=== PATIENT | female | born 1980 | race Caucasian/White ===

== ENCOUNTER 2022-09-30 08:17 | Emergency (ER) | payer SELFPAY ==
[~2022-09-30] VITALS: Ht 149.9 cm; Wt 38.1 kg
[2022-09-30] MEDS ORDERED: Bactrim Ds Tab1 EACH PO (09:19)
[2022-09-30] MEDS ORDERED: CEPH500 PO (09:19)
== END 2022-09-30 09:32 | disposition home or self-care (01) ==
LOC: ER 08:17
DX: L03.115 Cellulitis of right lower limb (principal); F17.200 Nicotine dependence, unspecified, uncomplicated
CPT/HCPCS: 99282

== ENCOUNTER 2024-02-23 21:16 | Inpatient (IN) | payer OTHER ==
[~2024-02-23] VITALS: Ht 149.9 cm; Wt 40.4 kg
[~2024-02-23 21:16] MED LIST: Bactrim Ds Tab1 EACH PO; CEPH500 PO
[2024-02-23 21:30] LABS: BASOPHILS ABSOLUTE AUTO 0.03 K/mm3 (0.00-0.23); BASOPHILS PERCENT AUTO 0 % (0-2); EOSINOPHILS ABSOLUTE AUTO 0.06 K/mm3 (0.00-0.68); EOSINOPHILS PERCENT AUTO 1 % (0-6); Hematocrit 25.7 % (33.0-51.0); Hemoglobin 8.2 g/dL (11.5-16.0); IMMATURE GRAN ABSOLUTE AUTO 0.03 K/mm3 (0.00-0.10); IMMATURE GRAN PERCENT AUTO 0 % (0-1); LYMPHOCYTES ABSOLUTE AUTO 3.97 K/mm3 (0.84-5.20); LYMPHOCYTES PERCENT AUTO 37 % (21-46); MONOCYTES ABSOLUTE AUTO 1.04 K/mm3 (0.16-1.47); MONOCYTES PERCENT AUTO 10 % (4-13); Mean Corpuscular HGB 33.2 pg (26.0-34.0); Mean Corpuscular HGB Conc 31.9 g/dL (31.5-36.5); Mean Corpuscular Volume 104 fL (80-100); Mean Platelet Volume 10.1 fL (9.1-12.4); NEUTROPHILS ABSOLUTE AUTO 5.67 K/mm3 (1.96-9.15); NEUTROPHILS PERCENT AUTO 52 % (41-73); Platelet Count 210 K/mm3 (150-400); RDW Coefficient Variation 15.8 % (11.7-14.2); RDW Standard Deviation 59.8 fL (35.1-46.3); Red Blood Cell Count 2.47 M/mm3 (3.80-5.20)
[2024-02-23 21:55] LABS: RETICULOCYTE ABSOLUTE 0.0432 M/mm3 (0.0200-0.1100); RETICULOCYTE COUNT PERCENT 1.77 % (0.50-2.50)
[2024-02-23 22:10] LABS: International Normalized Ratio 1.02; Prothrombin Time Results 10.9 Sec (9.7-11.5)
[2024-02-23 22:23] LABS: Albumin, Blood 2.7 g/dL (3.4-5.0); Albumin/Globulin Ratio 0.8 (0.8-1.8); Bilirubin, Total 0.3 mg/dL (0.1-1.0); Bun/Creatinine Ratio 15.1 (12.0-20.0); Calcium, Blood 7.9 mg/dL (8.5-10.1); Creatinine, Blood 0.53 mg/dL (0.40-1.00); Globulin, Blood 3.3 g/dL (2.2-4.0); Thyroid Stimulating Hormone 20.9 uIU/mL (0.360-4.800)
[2024-02-23] MEDS ORDERED: Potassium Chloride 40 MEQ in NS 250 ML IV ONE (22:55)
[2024-02-23] MEDS ORDERED: Cyanocobalamin 1000 MCG/ML 1ML Vial IM SCH (23:00)
[2024-02-23 23:16] LABS: Free Thyroxine 0.72 ng/dL (0.70-1.60); Magnesium, Blood 1.6 mg/dL (1.6-2.4); Triiodothyronine, Free 1.5 pg/mL (2.18-3.98)
[2024-02-23] MEDS ORDERED: NS 1,000 ML IV SCH (23:20)
[2024-02-23] MEDS ORDERED: NS 1,000 ML IV ONE (23:25)
[2024-02-23] MEDS ORDERED: ESTROGENS CONJUGATED IV ONE (23:45)
[2024-02-24] VITALS (23 sets, daily range): BP systolic 114–142; BP diastolic 69–85
[2024-02-24] MEDS ORDERED: propofoL 20 ML IV ONE (00:17)
[2024-02-24] MEDS ORDERED: Lidocaine HCl 2% 20 ML MDV ONE (00:17)
[2024-02-24] MEDS ORDERED: Rocuronium Bromide 10 MG/ML 5ML Injection IV ONE ×2 (00:17→01:54)
[2024-02-24] MEDS ORDERED: FentaNYL Citrate 50 MCG/ML 2 ML Injection ONE (00:18)
[2024-02-24] MEDS ORDERED: Lidocaine HCl 2% Jelly 120MG/6ML SYR (20MG PER ML) ONE (00:19)
[2024-02-24] MEDS ORDERED: CeFAZolin Sodium 2,000 MG in NS 100 ML IV SCH (01:05)
[2024-02-24] MEDS ORDERED: CeFAZolin Sodium 1000 mg Vial ONE (01:16)
[2024-02-24] MEDS ORDERED: Phenylephrine HCl 100 MCG/ML-NS 10MLSYR (1MG/10ML) ONE (01:17)
[2024-02-24] MEDS ORDERED: Ondansetron HCl 2 MG / ML 2ML Vial ONE (01:36)
[2024-02-24] MEDS ORDERED: Dexamethasone Sod Phos 10 MG/ML 1ML VIAL ONE (01:36)
[2024-02-24] MEDS ORDERED: FentaNYL Citrate 50 MCG/ML 2 ML Injection IV PRN ×2 (01:50)
[2024-02-24] MEDS ORDERED: Ondansetron HCl 2 MG / ML 2ML Vial IV PRN ×2 (01:50→03:20)
[2024-02-24] MEDS ORDERED: HYDROmorphone HCl/Pf 1MG SYR IV PRN ×2 (01:50→03:15)
[2024-02-24] MEDS ORDERED: Bupivacaine 0.5% HCl 5 MG/ML 30MLVIAL ONE (02:12)
[2024-02-24] MEDS ORDERED: Sugammadex Sodium 200 MG/2ML SDV (100 MG/ML) ONE (02:18)
[2024-02-24] MEDS ORDERED: Silver Nitr/Potassium Nitrate 1 EA APPL TOP ONE (02:40)
[2024-02-24] MEDS ORDERED: DiphenhydrAMINE HCL 25 MG Cap PO PRN (03:15)
[2024-02-24] MEDS ORDERED: Simethicone 80 MG Chew PO PRN (03:15)
[2024-02-24] MEDS ORDERED: Naloxone HCl 0.4MG / ML 1ML Vial IV PRN (03:20)
[2024-02-24] MEDS ORDERED: OxyCODONE HCL 5 MG TAB PO PRN ×2 (03:20)
[2024-02-24] MEDS ORDERED: Lactated Ringer's 1,000 ML IV SCH (03:20)
[2024-02-24] MEDS ORDERED: Metoclopramide HCl 5MG / ML 2ML Vial IV PRN (03:20)
[2024-02-24 03:46] LABS: BASOPHILS ABSOLUTE AUTO 0.02 K/mm3 (0.00-0.23); BASOPHILS PERCENT AUTO 0 % (0-2); EOSINOPHILS PERCENT AUTO 0 % (0-6); Hematocrit 29.8 % (33.0-51.0); Hemoglobin 9.9 g/dL (11.5-16.0); IMMATURE GRAN ABSOLUTE AUTO 0.03 K/mm3 (0.00-0.10); IMMATURE GRAN PERCENT AUTO 0 % (0-1); LYMPHOCYTES ABSOLUTE AUTO 0.76 K/mm3 (0.84-5.20); LYMPHOCYTES PERCENT AUTO 8 % (21-46); MONOCYTES ABSOLUTE AUTO 0.23 K/mm3 (0.16-1.47); MONOCYTES PERCENT AUTO 3 % (4-13); Mean Corpuscular HGB 31.7 pg (26.0-34.0); Mean Corpuscular HGB Conc 33.2 g/dL (31.5-36.5); Mean Platelet Volume 10.1 fL (9.1-12.4); NEUTROPHILS PERCENT AUTO 89 % (41-73); Platelet Count 137 K/mm3 (150-400); RDW Coefficient Variation 15.9 % (11.7-14.2); RDW Standard Deviation 54.1 fL (35.1-46.3); Red Blood Cell Count 3.12 M/mm3 (3.80-5.20); White Blood Cell Count 9.34 K/mm3 (4.00-11.30)
[2024-02-24 03:47] LABS: Mean Corpuscular Volume 96 fL (80-100)
[2024-02-24] MEDS ORDERED: Ketorolac Tromethamine 30mg Vial IV SCH (04:00)
[2024-02-24 04:28] LABS: Bun/Creatinine Ratio 10.4 (12.0-20.0); Calcium, Blood 6.9 mg/dL (8.5-10.1); Creatinine, Blood 0.39 mg/dL (0.40-1.00)
[2024-02-24] MEDS ORDERED: CALCIUM GLUC IN NACL, ISO-OSM 50 ML IV ONE (05:40)
[2024-02-24] MEDS ORDERED: Acetaminophen 500 MG Tab PO SCH (06:00)
--- NOTE | 2024-02-24 06:27 | NUR ---
ARRIVAL TO ICU/END OF SHIFT SUMMARY PT ARRIVED TO ICU 3 AT 0250 FROM THE OR; HAD SURGERY FOR A TOTAL HYSTERECTOMY. SHE WAS ON A NRB AT 8L AND WAS ABLE TO TITRATE DOWN TO RA WITH SPO2 >97%. PAIN MANAGABLE WITH PRN FENTANYL AT THE BEGINNING AND NOW PRN OXYCODONE AND TYLENOL. SHE IS A/O X4 AND ABLE TO MAKE HER NEEDS KNOWN. HR 60'S. BP STABLE WITH SBP 120'S. TOLERATING PO WATER WELL WITH PO MEDS. LOPEZ IN PLACE AND DRAINING TO GRAVITY. ABD INCISION DRESSING HAS SMALL AMOUNT OF DRAINAGE BUT CONT TO BE INTACT; NO VAGINAL DISCHARGE AT THIS TIME. LR INFUSING AT 125ML/HR. POTASSIUM AND CALCIUM REPLACED. DR KABA ROUNDED AND PLANS ON BEING BACK LATER THIS AFTERNOON. PT CAME TO BEDSIDE SHORTLY AFTER ARRIVAL FOLLOWED BY HEADING HOME; HE WAS APPROPRIATE. WILL REPORT TO AM RN WHEN AVAILABLE.
[2024-02-24] MEDS ORDERED: Ibuprofen 400 MG Tab PO SCH (08:00)
--- NOTE | 2024-02-24 08:00 | NUR ---
INITIAL ASSESSMENT PATIENT ALERT AND ORIENTED X 4, AFEBRILE. PATIENT REPORTS 6/10 PAIN TO ABD BUT STATES 7/10 PAIN IS MANAGEABLE FOR HER. PATIENT RECEIVING SCHEDULED PAIN MEDICATIONS AND HAS PRNS AVAILABLE. PATIENT MOVES ARMS AND LEGS WELL. LIMITED MOVEMENT TO ABD/ CORE POST SURGERY. PATIENT SATTING 90% AND GREATER ON RA. LUNGS CLEAR THROUGHOUT. PATIENT IN SR, HR 60S TO 70S. SBP 1-TEENS TO 120S. ISLAND DRESSING TO LOWER ABD. SMALL AMOUNT OF DRAINAGE NOTED; NIGHT RN REPORTS NO FURTHER DRAINAGE ON HER SHIFT. LOPEZ IN PLACE DRAINING YELLOW COLORED URINE. LR INFUSING AT 125 MLS/ HOUR. BED LOW, CALL LIGHT IN REACH. CARE CONTINUES.
--- NOTE | 2024-02-24 08:10 | NUR ---
ER SENT BLOOD REQUEST TO LAB. LAB SENT BLOOD TO ICU. LAB CALLED ICU NURSE DID NOT INITIATE THIS OR SEND FOR SLIP. LAB STATED OK TO SEND BLOOD BACK IN TUBE SYSTEM.
[2024-02-24 09:34] LABS: Hematocrit 29.2 % (33.0-51.0); Hemoglobin 10.3 g/dL (11.5-16.0)
--- NOTE | 2024-02-24 12:00 | NUR ---
PATIENT AFEBRILE. NO NEURO CHANGES NOTED. HR 60S TO 70S. SBP 130S TO 140S. NO INCREASED DRAINAGE TO ABD DRESSING AND NO DRAINAGE/ BLEEDING NOTED FROM VAGINAL OPENING. NO COMPLAINTS OF PAIN. BED LOW, CALL LIGHT IN REACH. CARE CONTINUES.
[2024-02-24] MEDS ORDERED: Nicotine 14 MG PATCH TOP SCH (12:05)
[2024-02-24 12:23] LABS: Albumin, Blood 2.4 g/dL (3.4-5.0); Albumin/Globulin Ratio 0.9 (0.8-1.8); Bilirubin, Total 0.6 mg/dL (0.1-1.0); Calcium, Blood 7.7 mg/dL (8.5-10.1); Creatinine, Blood 0.36 mg/dL (0.40-1.00); Globulin, Blood 2.7 g/dL (2.2-4.0); Potassium, Blood 3.5 mmol/L (3.5-5.5); Total Protein, Blood 5.1 g/dL (6.4-8.2)
[2024-02-24 15:42] LABS: Hematocrit 27.2 % (33.0-51.0); Hemoglobin 9.3 g/dL (11.5-16.0)
--- NOTE | 2024-02-24 16:00 | NUR ---
PATIENT HAS TEMP OF 99.5 DEGREES FAHRENHEIT. HR IN THE 60S. SBP IN THE 1-TEENS. NO CHANGES TO ABD DRESSING/ DRAINAGE. NO OTHER ACUTE CHANGES TO NOTE ON AT THIS TIME. BED LOW, CALL LIGHT IN REACH. CARE CONTINUES.
--- NOTE | 2024-02-24 16:36 | NUR ---
DR. KABA CALLED AND UPDATED THAT HEMOGLOBIN HAS DROPPED. INFORMED THAT NO FURTHER LABS ORDERED. DR. KABA ORDERED FOR CBC AND BNP FOR AM.
--- NOTE | 2024-02-24 18:18 | NUR ---
SHIFT SUMMARY PATIENT REMAINED ALERT AND ORIENTED X 4. PATIENT HAD TMAX OF 99.5 DEGREES FAHRENHEIT. PATIENT STATED THAT PAIN CONTROLLED ADEQUATELY WITH SCHEDULED PAIN MEDICATIONS. PATIENT DID NOT FEEL LIKE GETTING OUT OF BED TODAY. DR. KABA STATED PATIENT OKAY TO PERFORM ACTIVITIES AD THONY WITH NO HEAVY LIFTING AND NO SHOWER TODAY. PATIENT REMAINED SATTING 90% AND GREATER ON RA. PATIENT REMAINED IN SR, HR 60S TO 80S. SBP 1-TEENS TO 140S. SCDS REMAINED IN PLACE. PATIENT HAD OKAY APPETITE. FRIEND BROUGHT IN SOME FOOD THAT PATIENT LIKED BETTER THAN HOSPITAL FOOD. NO BM THIS SHIFT. NO COMPLAINTS OF NAUSEA THIS SHIFT. LOPEZ DRAINED 1850 MLS OF YELLOW COLORED URINE. NO CHANGES TO ABD DRESSING/ DRAINAGE. NO BLEEDING OR DRAINAGE NOTED FROM VAGINA THIS SHIFT. ADMIT HX COMPLETED THIS SHIFT. PATIENT HAD FRIEND COME VISIT THIS SHIFT. BED LOW, CALL LIGHT IN REACH. NO COMPLAINTS AT THIS TIME. REPORT WILL BE GIVEN TO ASSUMING CONTROL INTEGRATION ENGINEER NURSE SHORTLY.
--- NOTE | 2024-02-24 20:24 | NUR ---
[facility] AT 1900. A&O X4. PATIENT ON RA. PAIN MANAGED WITH SCHUDEULED MEDS. JOHN REMOVED AT 1999.
[2024-02-25 04:37] VITALS: BP 128/76
--- NOTE | 2024-02-25 04:55 | NUR ---
NICKER AND BREAKER PATIENT IS A&OX4, VITALS ARE STABLE AND IS ON ROOM AIR. PATIENT DENIED ANY PAIN BUTaccepted TO TAKE HER SCHEDULE PAIN MEDS. PATIENT GOT TRANSFERRED FROM ICU LAST NIGHT TO [facility] [place]. SHE HAD A LOPEZ CATHETER IN THE ICU THAT WAS REMOVED AT 1999 BEFORE TRANSFERRING. THROUGHOUT THE NIGHT SHE HAD NOTHING TO DRINK EXCEPT FOR A SIP OF WATER WITH PILLS. SHE VOIDED A TOTAL OF 250ML DURING NICKER AND BREAKER. PATIENT HAD A HYSTERECTOMY YESTERDAY AND IS BEING MONITOR FOR ANY VAGINAL BLEEDING. PATIENT HAD A SMALL AMOUNT OF VAGINAL BLEED ON THE BED DURING TRANSFERRING. PATIENT ACTIVITY IS UP AT LID. SHE IS VERY WEAK SO WE SHE WAS EDUCATED TO CALL BEFORE GETTING OUT OF BED TO PREVENT FALLS.
[2024-02-25 05:08] LABS: BASOPHILS ABSOLUTE AUTO 0.03 K/mm3 (0.00-0.23); BASOPHILS PERCENT AUTO 0 % (0-2); EOSINOPHILS ABSOLUTE AUTO 0.04 K/mm3 (0.00-0.68); EOSINOPHILS PERCENT AUTO 0 % (0-6); Hematocrit 27.8 % (33.0-51.0); Hemoglobin 9.6 g/dL (11.5-16.0); IMMATURE GRAN ABSOLUTE AUTO 0.07 K/mm3 (0.00-0.10); IMMATURE GRAN PERCENT AUTO 1 % (0-1); LYMPHOCYTES ABSOLUTE AUTO 2.44 K/mm3 (0.84-5.20); LYMPHOCYTES PERCENT AUTO 20 % (21-46); MONOCYTES ABSOLUTE AUTO 0.56 K/mm3 (0.16-1.47); MONOCYTES PERCENT AUTO 5 % (4-13); Mean Corpuscular HGB 32.1 pg (26.0-34.0); Mean Corpuscular HGB Conc 34.5 g/dL (31.5-36.5); Mean Corpuscular Volume 93 fL (80-100); Mean Platelet Volume 10.7 fL (9.1-12.4); NEUTROPHILS ABSOLUTE AUTO 9.36 K/mm3 (1.96-9.15); NEUTROPHILS PERCENT AUTO 75 % (41-73); Platelet Count 160 K/mm3 (150-400); RDW Coefficient Variation 17.4 % (11.7-14.2); RDW Standard Deviation 58.3 fL (35.1-46.3); Red Blood Cell Count 2.99 M/mm3 (3.80-5.20)
[2024-02-25 05:40] LABS: Bun/Creatinine Ratio 10.7 (12.0-20.0); Calcium, Blood 7.9 mg/dL (8.5-10.1); Creatinine, Blood 0.47 mg/dL (0.40-1.00); Percent Saturation 24.9 % (15.0-50.0); Potassium, Blood 3.5 mmol/L (3.5-5.5)
[2024-02-25] MEDS ORDERED: Polyethylene Glycol 3350 17 gm PO SCH (06:00)
[2024-02-25 07:41] VITALS: BP 123/74
[2024-02-25] MEDS ORDERED: Ibuprofen 400 MG Tab PO SCH (08:00)
[2024-02-25] MEDS ORDERED: Folic Acid 1 MG TAB PO SCH (09:00)
[2024-02-25] MEDS ORDERED: Thiamine HCl 100 MG Tab PO SCH (09:00)
[2024-02-25] MEDS ORDERED: Famotidine 20 MG Tab PO SCH (09:00)
[2024-02-25 19:32] VITALS: BP 150/77
--- NOTE | 2024-02-25 20:34 | NUR ---
SUMMARY- PT A/O X4. TOLERATING FOOD AND FLUID. PT'S DRESSING REMOVED, MIN OLD BLOOD, LOW ABD INCISION APPROX 9CM LENGTH, APPEARS SURGICAL GLUE AND INTERNAL SUTURES, BRUISING PRESENT HOLLEY INCISION. PT CONT TO COMPLAIN OF ABD BLOATED GASSY FEELING, STATES SHE IS PASSING GAS. ABD MILDLY DIDTENDED, NORMOACTIVE BOWEL TONES. HEAT PAD IN USE ASSISTS IN DISCOMFORT. PT ENC ACTIVITY, AMBULATED IN [place] THIS AFTERNOON. PAIN CONTROLLED WITH ROUTINE SCHEDULED TYLENOL AND IBUPROFEN AND HAD OXYCODONE 5MG X2 TODAY. PT TOLERATING FOOD AND FLUID. 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 PLAN FOR PT TO BE NPO AFTER MN. DR REYES CAME BY BUT PT WAS IN SHOWER. PLAN FOR HIM TO EVAL PT IN AM WITH LIKELY PORT PLACEMENT IN PM. REPORTED TO SHANNA STATON
[2024-02-26] VITALS (12 sets, daily range): BP systolic 86–157; BP diastolic 55–91
--- NOTE | 2024-02-26 05:38 | NUR ---
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 NO VAGINAL BLEEDING OBSERVED, ABD INCISION INTACTED AND OPEN TO AIR. PATIENT HAD BEEN NPO SINCE MIDNIGHT FOR A POSSIBLE CHEMO PORT INSERTON. PATIENT NOTIFIED STAFF LASTNIGHT THAT SHE DOESN'T WANT A PORT PUT IN YET UNTIL SHE GOES HOME AND DISCUSS WITH HER FAMILY. SHE SAID SHE DOESN'T WANT TO START CHEMO YET UNTI SHE HAS TALKED TO HER FAMILY ABOUT IT AND THAT SHE WOULD LIKE TO BE D/C HOME TODAY.
[2024-02-26] MEDS ORDERED: CeFAZolin Sodium 2,000 MG in NS 100 ML IV SCH (11:45)
[2024-02-26] MEDS ORDERED: Lactated Ringer's 1,000 ML IV SCH (11:45)
--- NOTE | 2024-02-26 12:06 | NUR ---
PT BROUGHT FROM FLOOR TO DAY SURGERY FOR PROCEDURE. History, Chart, Medications and Allergies reviewed before start of procedure. Lungs clear T/O to Auscultation. Patient confirms NPO status and agrees with scheduled surgery. Pre-Op teaching done. Pt verbalizes understanding. PT BELONGINGS LEFT IN HER PERSONAL ROOM 306 ON MEDICAL FLOOR.
--- NOTE | 2024-02-26 12:06 | NUR ---
PT HAS 20G IV TO RIGHT FOREARM THAT FLUSHES WELL AND FLOWS TO GRAVITY.
--- NOTE | 2024-02-26 12:09 | NUR ---
PT HAS RINGS ON LEFT RING FINGER THAT CANNOT BE REMOVED. JEWELRY TAPED AND JEWELRY CONSENT SIGNED. OR NOTIFIED.
[2024-02-26] MEDS ORDERED: Midazolam HCl 1MG / ML 2ML Vial ONE (12:34)
[2024-02-26] MEDS ORDERED: propofoL 60 ML IV ONE (12:34)
[2024-02-26] MEDS ORDERED: Bupivacaine 0.5% HCl 5 MG/ML 30MLVIAL ONE (12:54)
--- NOTE | 2024-02-26 14:12 | NUR ---
PT RESTING QUIETLY,VSS, SITE CLEAR. XRAY DONE AWAITING REPORT. REPORT TO BEE STATON.
[2024-02-26] MEDS ORDERED: FOLI1 PO (14:28)
[2024-02-26] MEDS ORDERED: ACET500 PO (14:28)
[2024-02-26] MEDS ORDERED: OXAYDO5 M1 PO (14:29)
[2024-02-26] MEDS ORDERED: IBUP400 PO (14:29)
[2024-02-26] MEDS ORDERED: MIRALAX17 GM PO (14:30)
[2024-02-26] MEDS ORDERED: SIME80CH PO (14:30)
--- NOTE | 2024-02-26 16:00 | NUR ---
DISCHARGE INSTRUCTIONS COMPLETED AND DISCUSSED WITH PT EXPRESSING UNDERSTANDING. SCRIPTS FAXED TO [facility] ON [facility]. TO [facility] VIA W/C AFTER MEDIPORT PLACED. VSS. AWAKE AND ALERT. ATE A SANDWICH AND WALKED TO THE BATHROOM INDEPENDENTLY TWICE.
== END 2024-02-26 16:00 | disposition home or self-care (01) | DRG 740 ==
LOC: ER 21:16 → ICUE 21:17 → ER 02-24 00:57 → ICUE 02-24 02:05 → MEDS 02-24 03:13 → ICUE 02-24 03:14 → MEDS 02-24 21:02 → ENPENDDIS 02-26 10:16 → MEDS 02-26 16:00
PROVIDERS: Emergency Medicine; Family Medicine; Internal Medicine; ADMIT Obstetrics & Gynecology
PROC: 0UT90ZL Resection of Uterus, Supracervical, Open Approach (ICD-10-PCS; 2024-02-24)
PROC: 0TJB8ZZ Inspection of Bladder, Via Natural or Artificial Opening Endoscopic (ICD-10-PCS; 2024-02-24)
PROC: 30233N1 Transfusion of Nonautologous Red Blood Cells into Peripheral Vein, Percutaneous Approach (ICD-10-PCS; 2024-02-24)
PROC: 0UT70ZZ Resection of Bilateral Fallopian Tubes, Open Approach (ICD-10-PCS; principal; 2024-02-24 09:45)
PROC: 0JH60WZ Insertion of Totally Implantable Vascular Access Device into Chest Subcutaneous Tissue and Fascia, Open Approach (ICD-10-PCS; 2024-02-26)
PROC: 02HV33Z Insertion of Infusion Device into Superior Vena Cava, Percutaneous Approach (ICD-10-PCS; 2024-02-26)
PROC: B548ZZA Ultrasonography of Superior Vena Cava, Guidance (ICD-10-PCS; 2024-02-26)
DX: C53.9 Malignant neoplasm of cervix uteri, unspecified (principal); D62 Acute posthemorrhagic anemia; F10.90 Alcohol use, unspecified, uncomplicated; D25.9 Leiomyoma of uterus, unspecified; E87.6 Hypokalemia; I95.9 Hypotension, unspecified; E03.8 Other specified hypothyroidism; R91.1 Solitary pulmonary nodule; F17.210 Nicotine dependence, cigarettes, uncomplicated; F12.90 Cannabis use, unspecified, uncomplicated
CPT/HCPCS: 36415; 36430; 71260; 74177; 77001; 80048; 80053; 82330; 82607; 82728; 82746; 83540; 83550; 83735; 84439; 84443; 84481; 84703; 85014; 85018; 85025; 85045; 85610; 85730; 86850; 86900; 86901; 86920; 86923; 88309; 93005; 93010; 96365-59; 96366; 96372-59; 96375; 99285-25; A9270; C1788; J0612; J0690; J1100; J1410; J1642; J1885; J2250; J2371; J2405; J2704; J3010; J3420; J3480; J7030; J7050; J7120; P9016; Q9967

== ENCOUNTER → 2024-04-27 | Outpatient (CLI) | payer OTHER ==
[~2024-04-27] MED LIST changes: +ACET500 PO; +FOLI1 PO; +IBUP400 PO; +MIRALAX17 GM PO; +OXAYDO5 M1 PO; +SIME80CH PO
[2024-04-27 11:08] LABS: BASOPHILS ABSOLUTE AUTO 0.02 K/mm3 (0.00-0.23); BASOPHILS PERCENT AUTO 0 % (0-2); EOSINOPHILS ABSOLUTE AUTO 0.13 K/mm3 (0.00-0.68); EOSINOPHILS PERCENT AUTO 2 % (0-6); Hematocrit 31.6 % (33.0-51.0); Hemoglobin 10.5 g/dL (11.5-16.0); IMMATURE GRAN ABSOLUTE AUTO 0.03 K/mm3 (0.00-0.10); IMMATURE GRAN PERCENT AUTO 1 % (0-1); LYMPHOCYTES ABSOLUTE AUTO 0.85 K/mm3 (0.84-5.20); LYMPHOCYTES PERCENT AUTO 13 % (21-46); MONOCYTES ABSOLUTE AUTO 0.71 K/mm3 (0.16-1.47); MONOCYTES PERCENT AUTO 11 % (4-13); Mean Corpuscular HGB 28.9 pg (26.0-34.0); Mean Corpuscular HGB Conc 33.2 g/dL (31.5-36.5); Mean Corpuscular Volume 87 fL (80-100); NEUTROPHILS ABSOLUTE AUTO 4.59 K/mm3 (1.96-9.15); NEUTROPHILS PERCENT AUTO 73 % (41-73); Platelet Count 304 K/mm3 (150-400); RDW Coefficient Variation 20.2 % (11.7-14.2); RDW Standard Deviation 60.5 fL (35.1-46.3); Red Blood Cell Count 3.63 M/mm3 (3.80-5.20); White Blood Cell Count 6.33 K/mm3 (4.00-11.30)
[2024-04-27 11:50] LABS: Albumin, Blood 3.6 g/dL (3.4-5.0); Albumin/Globulin Ratio 0.9 (0.8-1.8); Bilirubin, Total 0.3 mg/dL (0.1-1.0); Bun/Creatinine Ratio 8.8 (12.0-20.0); Calcium, Blood 9.2 mg/dL (8.5-10.1); Creatinine, Blood 0.45 mg/dL (0.40-1.00); Globulin, Blood 4.2 g/dL (2.2-4.0); Potassium, Blood 3.5 mmol/L (3.5-5.5); Total Protein, Blood 7.8 g/dL (6.4-8.2)
== END | disposition home or self-care (01) ==
LOC: LAB 10:00 → LAB SHORT 10:00
PROVIDERS: Internal Medicine Hematology & Oncology
DX: C53.9 Malignant neoplasm of cervix uteri, unspecified (principal)
CPT/HCPCS: 80053; 85025

== ENCOUNTER → 2024-05-04 | Outpatient (CLI) | payer OTHER ==
[2024-05-04 11:28] LABS: BASOPHILS ABSOLUTE AUTO 0.01 K/mm3 (0.00-0.23); BASOPHILS PERCENT AUTO 0 % (0-2); EOSINOPHILS ABSOLUTE AUTO 0.07 K/mm3 (0.00-0.68); EOSINOPHILS PERCENT AUTO 1 % (0-6); Hematocrit 31.2 % (33.0-51.0); Hemoglobin 10.3 g/dL (11.5-16.0); IMMATURE GRAN ABSOLUTE AUTO 0.02 K/mm3 (0.00-0.10); IMMATURE GRAN PERCENT AUTO 0 % (0-1); LYMPHOCYTES PERCENT AUTO 14 % (21-46); MONOCYTES ABSOLUTE AUTO 0.63 K/mm3 (0.16-1.47); MONOCYTES PERCENT AUTO 13 % (4-13); Mean Corpuscular HGB 29.2 pg (26.0-34.0); Mean Corpuscular Volume 88 fL (80-100); Mean Platelet Volume 9.2 fL (9.1-12.4); NEUTROPHILS ABSOLUTE AUTO 3.44 K/mm3 (1.96-9.15); NEUTROPHILS PERCENT AUTO 71 % (41-73); Platelet Count 289 K/mm3 (150-400); RDW Coefficient Variation 21.6 % (11.7-14.2); RDW Standard Deviation 66.4 fL (35.1-46.3); Red Blood Cell Count 3.53 M/mm3 (3.80-5.20); White Blood Cell Count 4.87 K/mm3 (4.00-11.30)
[2024-05-04 12:05] LABS: Albumin, Blood 3.4 g/dL (3.4-5.0); Albumin/Globulin Ratio 0.8 (0.8-1.8); Bilirubin, Total 0.3 mg/dL (0.1-1.0); Bun/Creatinine Ratio 11.3 (12.0-20.0); Calcium, Blood 9.6 mg/dL (8.5-10.1); Creatinine, Blood 0.44 mg/dL (0.40-1.00); Percent Saturation 19.8 % (15.0-50.0); Potassium, Blood 3.6 mmol/L (3.5-5.5); Total Protein, Blood 7.4 g/dL (6.4-8.2)
== END ==
LOC: LAB 10:15 → LAB SHORT 10:15
PROVIDERS: Nurse Practitioner
DX: C53.9 Malignant neoplasm of cervix uteri, unspecified (principal); D50.0 Iron deficiency anemia secondary to blood loss (chronic)
CPT/HCPCS: 80053; 82728; 83540; 83550; 85025